=== PATIENT | female | born 1940 | race Caucasian/White ===

== ENCOUNTER → 2017-04-21 | Outpatient (CLI) | payer MEDICARE, BC ==
--- NOTE | 2017-04-21 11:39 | RAD ---
DATE: 04/21/2017 EXAM: MAMMO MARINE SCREENING BILATERAL HISTORY: Screening. The positive family history for breast malignancy is noted COMPARISON: 01/09/2016 This study was interpreted with the benefit of Computerized Aided Detection (CAD). FINDINGS: Breast Density: SCATTERED The breast parenchyma shows scattered fibroglandular densities. Breast parenchyma level B. No mass or suspect calcifications are seen in either breast. Lymph nodes are noted in the left axilla. There has not been a significant change in the appearance of the breasts compared to the previous exam IMPRESSION: Benign finding BI-RADS CATEGORY: 2 BENIGN FINDING(S) RECOMMENDED FOLLOW-UP: 12M 12 MONTH FOLLOW-UP PQRS compliance statement: Patient information was entered into a reminder system with a target due date 04/21/2018 for the next mammogram. Mammography is a sensitive method for finding small breast cancers, but it does not detect them all and is not a substitute for careful clinical examination. A negative mammogram does not negate a clinically suspicious finding and should not result in delay in biopsying a clinically suspicious abnormality. "Our facility is accredited by the [employer] Mammography [employer]."
== END | disposition home or self-care (01) ==
LOC: MAMMO 11:02
PROVIDERS: ATTEND Physician Assistant
DX: Z12.31 Encounter for screening mammogram for malignant neoplasm of breast (principal); Z80.3 Family history of malignant neoplasm of breast
CPT/HCPCS: 77063; G0202; 77067

== ENCOUNTER → 2017-12-22 | Outpatient (CLI) | payer MEDICARE, BC ==
[2017-12-22 12:08] LABS: HEMATOCRIT 39.6 % (36.0-47.0); HEMOGLOBIN 13.3 g/dL (12.0-15.5)
[2017-12-22 12:16] LABS: MAGNESIUM 1.9 mg/dL (1.8-2.4); URIC ACID 8.2 mg/dL (2.6-6.0)
[2017-12-22 12:28] LABS: ALBUMIN 3.9 g/dL (3.4-5.0); CALCIUM 9.5 mg/dL (8.5-10.1); CREATININE 1.1 mg/dL (0.6-1.0); PHOSPHORUS 3.4 mg/dL (2.6-4.7); POTASSIUM 3.5 mmol/L (3.5-5.1)
[2017-12-22 12:36] LABS: BILIRUBIN,URINE NEG (NEG); CLARITY,URINE CLEAR; COLOR,URINE YELLOW; GLUCOSE,URINE NEG (NEG); NITRITE,URINE NEG (NEG); RBC,URINE RARE /HPF (0-2); UROBILINOGEN,URINE 0.2 mg/dL (0.2 mg/dL); WBC,URINE RARE /HPF (0-4)
[2017-12-22 12:37] LABS: BACTERIA,URINE FEW /HPF (0-FEW); SQUAMOUS EPITHELIAL CELL,UR OCC /LPF
[2017-12-23 00:12] LABS: MICRO CREAT RATIO <11.3 mg/g creat (0.0-30.0); MICROALB RD UR <12.0 ug/mL (Not Estab.); PROTEIN RANDOM URINE 5.9 mg/dL (Not Estab.)
[2017-12-23 15:22] LABS: CALCIUM PTH 9.6 mg/dL (8.7-10.3); PTH INTACT 39 pg/mL (15-65)
== END | disposition home or self-care (01) ==
LOC: LAB 10:52
PROVIDERS: ATTEND Internal Medicine Nephrology
DX: I12.9 Hypertensive chronic kidney disease with stage 1 through stage 4 chronic kidney disease, or unspecified chronic kidney disease (principal); N18.3 Chronic kidney disease, stage 3 (moderate); E79.0 Hyperuricemia without signs of inflammatory arthritis and tophaceous disease; Z90.5 Acquired absence of kidney; Z68.29 Body mass index [BMI] 29.0-29.9, adult
CPT/HCPCS: 36415; 80069; 81001; 82043; 82570; 83735; 83970; 84156; 84550; 85014; 85018

== ENCOUNTER → 2017-12-31 | Outpatient (CLI) | payer MEDICARE, BC ==
[2017-12-31 11:37] LABS: BACTERIA,URINE 0 /HPF (0-FEW); BILIRUBIN,URINE NEG (NEG); CLARITY,URINE CLEAR; COLOR,URINE YELLOW; GLUCOSE,URINE NEG (NEG); NITRITE,URINE NEG (NEG); RBC,URINE 0 /HPF (0-2); SQUAMOUS EPITHELIAL CELL,UR OCC /LPF; UROBILINOGEN,URINE 0.2 mg/dL (0.2 mg/dL); WBC,URINE RARE /HPF (0-4)
[2017-12-31 11:49] LABS: ALBUMIN 3.7 g/dL (3.4-5.0); ALBUMIN/GLOBULIN RATIO 1.1 (1.0-1.7); CALCIUM 9.3 mg/dL (8.5-10.1); GFR 53.6; POTASSIUM 3.7 mmol/L (3.5-5.1); TOTAL BILIRUBIN 0.4 mg/dL (0.2-1.0); TOTAL PROTEIN 7.2 g/dL (6.4-8.2)
[2017-12-31 12:00] LABS: DIRECT BILIRUBIN 0.1 mg/dL (0.0-0.2)
== END | disposition home or self-care (01) ==
LOC: LAB 10:11
PROVIDERS: ATTEND Internal Medicine Cardiovascular Disease
DX: E78.5 Hyperlipidemia, unspecified (principal); Z79.899 Other long term (current) drug therapy
CPT/HCPCS: 36415; 80053; 80061; 81001; 82248; 87086; 87186

== ENCOUNTER → 2018-06-18 | Outpatient (CLI) | payer MEDICARE, BC ==
--- NOTE | 2018-06-22 15:45 | RAD ---
DATE: June 18, 2018 EXAM: MAMMO MARINE SCREENING BILATERAL HISTORY: Screening study. COMPARISON: 2015 and 2017 This study was interpreted with the benefit of Computerized Aided Detection (CAD). 2-D digital mammographic views of both breasts were performed in the CC and MLO projections. 3-D digital tomosynthesis images of both breasts were performed in the CC and MLO projections and reviewed on a computer workstation. FINDINGS: Breast Density: FATTY The breast parenchyma is primarily fatty replaced. Breast parenchyma level density A.. There are no dominant suspicious masses, suspicious microcalcifications or evidence of architectural distortion. IMPRESSION: No mammographic indicators for malignancy. BI-RADS CATEGORY: 1 NEGATIVE RECOMMENDED FOLLOW-UP: 12M 12 MONTH FOLLOW-UP PQRS compliance statement: Patient information was entered into a reminder system with a target due date June 19, 2019 for the next mammogram. Mammography is a sensitive method for finding small breast cancers, but it does not detect them all and is not a substitute for careful clinical examination. A negative mammogram does not negate a clinically suspicious finding and should not result in delay in biopsying a clinically suspicious abnormality. "Our facility is accredited by the [employer] Mammography [employer]." The patient's breast density may affect the ability of mammography to detect breast cancer. There are 4 categories of breast density, A, B, C and D. Breast density A means that most of the breast tissue is replaced with adipose tissue and therefore is not dense. Breast density B means that the breast tissue is mildly dense and scattered. Breast density C means that the breast tissue is heterogeneously dense. Breast density D means that the breast tissue is very dense. Breast densities especially C and D may decrease the sensitivity of mammography to detect breast cancer. Therefore, the patient may benefit from 3-D breast mammography (3D breast tomography) as a part of their screening mammogram. Insurance may or may not pay for this additional imaging. The patient's breast density based on today's mammogram is category A.
== END | disposition home or self-care (01) ==
LOC: MAMMO 09:57
PROVIDERS: ATTEND Physician Assistant
DX: Z12.31 Encounter for screening mammogram for malignant neoplasm of breast (principal); I12.9 Hypertensive chronic kidney disease with stage 1 through stage 4 chronic kidney disease, or unspecified chronic kidney disease; N18.3 Chronic kidney disease, stage 3 (moderate); E78.5 Hyperlipidemia, unspecified; M17.11 Unilateral primary osteoarthritis, right knee; Z80.3 Family history of malignant neoplasm of breast
CPT/HCPCS: 77063; 77067

== ENCOUNTER → 2018-07-21 | Outpatient (CLI) | payer MEDICARE, BC | END | disposition home or self-care (01) | LOC: LAB 10:30 | PROVIDERS: ATTEND Internal Medicine Cardiovascular Disease | DX: E78.49 Other hyperlipidemia (principal) | CPT/HCPCS: 80061 ==

== ENCOUNTER 2018-12-28 04:00 | Emergency (ER) | payer MEDICARE, BC ==
[~2018-12-28] VITALS: Ht 154.9 cm; Wt 63.5 kg
[2018-12-28] MEDS ORDERED: IV NORMAL SALINE 1,000ML 1,000 ML IV ONE (04:30)
[2018-12-28 04:31] LABS: BASO % 0 % (0-3); EOS % 0 % (0-3); HEMATOCRIT 39.3 % (36.0-47.0); HEMOGLOBIN 13.3 g/dL (12.0-15.5); LYMPH # 1.2 x10^3/uL (1.0-4.8); LYMPH % 13 % (24-48); MEAN CORPUSCULAR HEMOGLOBIN 29 pg (25-35); MEAN CORPUSCULAR HGB CONC 34 g/dL (31-37); MEAN CORPUSCULAR VOLUME 85 fL (79-100); MONO # 0.4 x10^3/uL (0.0-1.1); MONO % 4 % (0-9); NEUT # 7.4 x10^3uL (1.8-7.7); NEUT % 82 % (31-73); PLATELET COUNT 304 x10^3/uL (140-400); RED BLOOD COUNT 4.61 x10^6/uL (3.50-5.40); RED CELL DISTRIBUTION WIDTH 14.1 % (11.5-14.5); WHITE BLOOD COUNT 8.9 x10^3/uL (4.0-11.0)
--- NOTE | 2018-12-28 04:35 | PHYS DOC ---
Past History Past Medical History: High Cholesterol, Hypertension, Hypothyroid, Kidney Stones Past Surgical History: Other Additional Past Surgical Histo: Left nephrectomy Smoking: Cigarettes Alcohol Use: None Drug Use: None Adult General Chief Complaint Chief Complaint: ABDOMINAL PAIN HPI HPI 78-year-old female presents with report of right lower quadrant abdominal pain with radiation to back which started at 1900 last night. Patient does report some associated sensation that she is "bloated"and possibly constipated. Patient does report previous normal bowel movement yesterday morning. Denies fever or chills. Also denies any nausea or vomiting. Denies known trauma. Patient does have history of prior kidney stones requiring nephrectomy to left side when she was 21 years old. Denies hematuria. Patient does report some decreased urination. Review of Systems Review of Systems Constitutional: Denies fever or chills [] Eyes: Denies change in visual acuity, redness, or eye pain [] HENT: Denies nasal congestion or sore throat [] Respiratory: Denies cough or shortness of breath [] Cardiovascular: Denies chest pain or palpitations GI: Reports abdominal pain and constipation; denies nausea, vomiting, bloody stools or diarrhea [] : Denies dysuria or hematuria; reports decreased urination Musculoskeletal: Reports back pain; denies joint pain Integument: Denies rash or skin lesions [] Neurologic: Denies headache, focal weakness or sensory changes [] Complete systems were reviewed and found to be within normal limits, except as documented in this note. Current Medications Current Medications Current Medications Medications (Trade) Dose Ordered Sig/Yaw Start Time Stop Time Status Last Admin Dose Admin Fentanyl Citrate (Fentanyl 2ml Vial) 25 mcg 1X ONCE 12/28/18 04:30 12/28/18 04:31 UNV Sodium Chloride 1,000 ml @ 1,000 mls/hr 1X ONCE 12/28/18 04:30 12/28/18 05:29 UNV 12/28/18 04:24 1,000 MLS/HR Allergies Allergies Allergies Coded Allergies Type Severity Reaction Last Updated Verified amlodipine Allergy Intermediate Swelling 12/28/18 Yes Physical Exam Physical Exam Constitutional: Well developed, well nourished, no acute distress, non-toxic appearance. [] HENT: Normocephalic, atraumatic, mucus membranes moist Eyes: Conjunctiva normal, no discharge. [] Neck: Normal range of motion, no tenderness, supple Cardiovascular: Heart rate regular rhythm, no murmur [] Lungs & Thorax: Bilateral breath sounds clear to auscultation [] Abdomen: Soft mild RLQ tenderness Skin: Warm, dry, no erythema, no rash. [] Back: No tenderness, no CVA tenderness. [] Extremities: No tenderness, ROM intact, no edema. [] Neurologic: Alert and oriented X 3, no focal deficits noted. [] Psychologic: Affect normal, judgement normal, mood normal. [] Current Patient Data Vital Signs Vital Signs Date Time Temp Pulse Resp B/P (MAP) Pulse Ox O2 Delivery O2 Flow Rate FiO2 12/28/18 04:06 97.9 81 20 95 Room Air EKG EKG [] Radiology/Procedures Radiology/Procedures PROCEDURE: CT ABDOMEN PELVIS WO CONTRAST CT scan of the abdomen and pelvis without contrast 11/30/2018 CLINICAL HISTORY: Right flank pain. TECHNIQUE: Unenhanced, contiguous, 3 mm axial sections were obtained through the abdomen and pelvis. One or more of the following individualized dose reduction techniques were utilized for this study: 1. Automated exposure control. 2. Adjustment of the mA and/or kV according to patient size. 3. Use of iterative reconstruction technique. FINDINGS: Images through the lung bases demonstrate minimal dependent subsegmental atelectasis bilaterally. The liver, spleen, pancreas, and adrenal glands are within normal limits. The patient is post left nephrectomy. The right kidney is enlarged. Moderate dilatation of the right intrarenal collecting system is seen. The right ureter is moderately dilated throughout its course. Increased density is seen within the fat surrounding the right kidney. Within the distal right ureter projecting medially into the urinary bladder at the level of the right UVJ a 6.5 mm distal ureteral calculus is seen. This causing moderate obstruction of the right collecting system. Atherosclerotic calcification of the abdominal aorta is seen. The abdominal aorta tapers normally. The gallbladder is contracted. No free fluid or free air is seen within the abdomen. There is no evidence of bowel obstruction. The appendix is well-visualized and is within normal limits. Images through the pelvis demonstrate the urinary bladder to be contracted. Calcifications are seen within the pelvis consistent with phleboliths. Multiple diverticula are seen involving the sigmoid colon. No inflammatory changes are seen in the adjacent fat. No free fluid is seen. Very mild S-shaped curvature of the thoracolumbar spine is seen. Degenerative changes are seen involving the lower thoracic and throughout the lumbar spine and both hips. IMPRESSION: 6.5 mm distal right ureteral calculus is seen projecting medially into the urinary bladder at the level of the right UVJ which is causing moderate obstruction of the right collecting system. Electronically signed by: Harlan Marino MD (12/28/2018 5:10 AM) [facility] Course & Med Decision Making Course & Med Decision Making Pertinent Labs and Imaging studies reviewed. (See chart for details) Elderly patient presents with report of right lower quadrant abdominal pain which started last night at 1900. No history of known trauma. Reports some issues with constipation and decreased urination. Synthroid treatment provided. IV fluid hydration given. Labs obtained and posted to chart. UA with microscopic hematuria. Creatinine increased from prior [employer] data (1.0 in December 2017 to 2.3 today). CT abd/pelvis with 6.5mm obstructing stone at UVJ with moderate hydronephrosis. Patient requiring transfer for urology consultation and admission for further evaluation and treatment. Discussed case with Dr. Cunningham (hospitalist) who is in agreement with transfer to [facility]. Discussed findings and plan with patient and family, who acknowledge understanding and agreement. Dragon Disclaimer Dragon Disclaimer This electronic medical record was generated, in whole or in part, using a voice recognition dictation system. Departure Departure: Impression: Primary Impression: Hydronephrosis with urinary obstruction due to ureteral calculus Additional Impression: Acute kidney failure Disposition: 05 TRANSFER OTHER ([facility]) Admitting Physician: Pipo Cunningham Condition: GUARDED Referrals: MARKUS HERNANDES (PCP) Problem Qualifiers Additional Impression: Acute kidney failure Acute renal failure type: unspecified Qualified Codes: N17.9 - Acute kidney failure, unspecified MAKENNA KELLY DO Dec 28, 2018 04:35
[2018-12-28 04:52] LABS: ALBUMIN 3.8 g/dL (3.4-5.0); ALBUMIN/GLOBULIN RATIO 1.1 (1.0-1.7); CALCIUM 9.3 mg/dL (8.5-10.1); CREATININE 2.3 mg/dL (0.6-1.0); GFR 20.5; POTASSIUM 3.9 mmol/L (3.5-5.1); TOTAL BILIRUBIN 0.4 mg/dL (0.2-1.0); TOTAL PROTEIN 7.4 g/dL (6.4-8.2)
--- NOTE | 2018-12-28 05:13 | RAD ---
CT scan of the abdomen and pelvis without contrast 11/30/2018 CLINICAL HISTORY: Right flank pain. TECHNIQUE: Unenhanced, contiguous, 3 mm axial sections were obtained through the abdomen and pelvis. One or more of the following individualized dose reduction techniques were utilized for this study: 1. Automated exposure control. 2. Adjustment of the mA and/or kV according to patient size. 3. Use of iterative reconstruction technique. FINDINGS: Images through the lung bases demonstrate minimal dependent subsegmental atelectasis bilaterally. The liver, spleen, pancreas, and adrenal glands are within normal limits. The patient is post left nephrectomy. The right kidney is enlarged. Moderate dilatation of the right intrarenal collecting system is seen. The right ureter is moderately dilated throughout its course. Increased density is seen within the fat surrounding the right kidney. Within the distal right ureter projecting medially into the urinary bladder at the level of the right UVJ a 6.5 mm distal ureteral calculus is seen. This causing moderate obstruction of the right collecting system. Atherosclerotic calcification of the abdominal aorta is seen. The abdominal aorta tapers normally. The gallbladder is contracted. No free fluid or free air is seen within the abdomen. There is no evidence of bowel obstruction. The appendix is well-visualized and is within normal limits. Images through the pelvis demonstrate the urinary bladder to be contracted. Calcifications are seen within the pelvis consistent with phleboliths. Multiple diverticula are seen involving the sigmoid colon. No inflammatory changes are seen in the adjacent fat. No free fluid is seen. Very mild S-shaped curvature of the thoracolumbar spine is seen. Degenerative changes are seen involving the lower thoracic and throughout the lumbar spine and both hips. IMPRESSION: 6.5 mm distal right ureteral calculus is seen projecting medially into the urinary bladder at the level of the right UVJ which is causing moderate obstruction of the right collecting system. Electronically signed by: Harlan Marino MD (12/28/2018 5:10 AM) [facility]
[2018-12-28 05:14] LABS: BACTERIA,URINE FEW /HPF (0-FEW); BILIRUBIN,URINE NEG (NEG); CLARITY,URINE HAZY; COLOR,URINE YELLOW; GLUCOSE,URINE NEG (NEG); NITRITE,URINE NEG (NEG); RBC,URINE >40 /HPF (0-2); SQUAMOUS EPITHELIAL CELL,UR FEW /LPF; UROBILINOGEN,URINE 0.2 mg/dL (0.2 mg/dL)
[2018-12-28 07:17] VITALS: BP 97/63
== END 2018-12-28 07:17 | disposition short-term general hospital (02) ==
LOC: ER 04:00
DX: N13.2 Hydronephrosis with renal and ureteral calculous obstruction (principal); N17.9 Acute kidney failure, unspecified; E78.00 Pure hypercholesterolemia, unspecified; I10 Essential (primary) hypertension; E03.9 Hypothyroidism, unspecified; Z87.442 Personal history of urinary calculi; F17.210 Nicotine dependence, cigarettes, uncomplicated; Z88.8 Allergy status to other drugs, medicaments and biological substances
CPT/HCPCS: 36415; 74176; 80053; 81001; 83690; 83735; 85025; 85610; 85730; 96374; 96376; 99285; J3010; J7030

== ENCOUNTER → 2019-02-22 | Outpatient (CLI) | payer MEDICARE, BC ==
[2019-02-22 10:05] LABS: ALBUMIN 3.6 g/dL (3.4-5.0); CALCIUM 9.6 mg/dL (8.5-10.1); CREATININE 1.1 mg/dL (0.6-1.0); GFR 47.9; MAGNESIUM 1.6 mg/dL (1.8-2.4); PHOSPHORUS 3.3 mg/dL (2.6-4.7); POTASSIUM 3.5 mmol/L (3.5-5.1); URIC ACID 8.8 mg/dL (2.6-6.0)
[2019-02-22 10:06] LABS: BASO # 0.1 x10^3/uL (0.0-0.2); BASO % 1 % (0-3); EOS # 0.3 x10^3/uL (0.0-0.7); EOS % 6 % (0-3); HEMATOCRIT 36.1 % (36.0-47.0); HEMOGLOBIN 12.4 g/dL (12.0-15.5); LYMPH # 1.7 x10^3/uL (1.0-4.8); LYMPH % 27 % (24-48); MEAN CORPUSCULAR HEMOGLOBIN 29 pg (25-35); MEAN CORPUSCULAR HGB CONC 34 g/dL (31-37); MEAN CORPUSCULAR VOLUME 85 fL (79-100); MONO # 0.5 x10^3/uL (0.0-1.1); MONO % 7 % (0-9); NEUT # 3.6 x10^3uL (1.8-7.7); NEUT % 59 % (31-73); PLATELET COUNT 360 x10^3/uL (140-400); RED BLOOD COUNT 4.23 x10^6/uL (3.50-5.40); RED CELL DISTRIBUTION WIDTH 13.8 % (11.5-14.5); WHITE BLOOD COUNT 6.1 x10^3/uL (4.0-11.0)
[2019-02-22 10:37] LABS: BACTERIA,URINE 0 /HPF (0-FEW); BILIRUBIN,URINE NEG (NEG); CLARITY,URINE CLEAR; COLOR,URINE YELLOW; GLUCOSE,URINE NEG (NEG); NITRITE,URINE NEG (NEG); RBC,URINE 0 /HPF (0-2); SQUAMOUS EPITHELIAL CELL,UR OCC /LPF; UROBILINOGEN,URINE 0.2 mg/dL (0.2 mg/dL); WBC,URINE RARE /HPF (0-4)
[2019-02-22 14:12] LABS: CREATININE,RANDOM URINE 82.5 mg/dL (Not Establ.)
[2019-02-22 20:09] LABS: MICROALB RD UR 8.2 ug/mL (Not Estab.)
[2019-02-23 02:06] LABS: CALCIUM PTH 9.5 mg/dL (8.7-10.3); CREATININE PTH 1.06 mg/dL (0.57-1.00); PTH INTACT 44 pg/mL (15-65)
== END | disposition home or self-care (01) ==
LOC: LAB 08:32
PROVIDERS: ATTEND Nurse Practitioner Adult Health
DX: I12.9 Hypertensive chronic kidney disease with stage 1 through stage 4 chronic kidney disease, or unspecified chronic kidney disease (principal); N18.3 Chronic kidney disease, stage 3 (moderate); E79.0 Hyperuricemia without signs of inflammatory arthritis and tophaceous disease; Z90.5 Acquired absence of kidney; Z68.25 Body mass index [BMI] 25.0-25.9, adult
CPT/HCPCS: 36415; 80069; 81001; 82043; 82570; 83735; 83970; 84156; 84550; 85025

== ENCOUNTER → 2019-03-30 | Outpatient (CLI) | payer MEDICARE, BC ==
--- NOTE | 2019-03-30 16:16 | RAD ---
Examination: WRIST 2V RIGHT History: Wrist pain Comparison/Correlation: None Findings: Frontal and lateral views of the right wrist were obtained. Osteopenia noted. No significant joint space narrowing. No acute fracture or bony destruction. Soft tissues are unremarkable. Impression: No acute process. Electronically signed by: Zeus Ty MD (03/30/2019 4:13 PM) [id number]
== END | disposition home or self-care (01) ==
LOC: PMG 09:02
PROVIDERS: ATTEND Physician Assistant
DX: M85.88 Other specified disorders of bone density and structure, other site (principal)
CPT/HCPCS: 73100

== ENCOUNTER → 2019-07-07 | Outpatient (CLI) | payer MEDICARE, BC ==
--- NOTE | 2019-07-07 15:44 | RAD ---
EXAM: Right wrist, 2 views. HISTORY: Palpable lump. COMPARISON: None. FINDINGS: 2 views of the right wrist are obtained. There is mild widening of the scapholunate joint space suggesting ligamentous injury. There is no fracture, dislocation or subluxation. IMPRESSION: 1. Mild widening of the scapholunate joint space, suggesting ligamentous injury. 2. No acute osseous finding. Electronically signed by: Ina Egan MD (07/07/2019 3:41 PM) [place] [id number]
== END | disposition home or self-care (01) ==
LOC: PMG 11:14
PROVIDERS: ATTEND Physician Assistant
DX: M25.431 Effusion, right wrist (principal)
CPT/HCPCS: 73100

== ENCOUNTER → 2019-09-16 | Outpatient (CLI) | payer MEDICARE, BC ==
--- NOTE | 2019-09-17 14:23 | RAD ---
DATE: 09/16/2019 EXAM: MAMMO MAIRNE SCREENING BILATERAL HISTORY: Routine screening COMPARISON: 01/02/2015, 01/09/2016, 04/21/2017, 06/18/2018 mammographic exams. This study was interpreted with the benefit of Computerized Aided Detection (CAD). Breast Density: SCATTERED The breast parenchyma shows scattered fibroglandular densities. Breast parenchyma level B. FINDINGS: Small right breast mass is stable. No suspicious calcifications or distortion. Asymmetry at the left lower outer breast approximately 10 cm from the nipple is new in the interval and seen on the CC projection. IMPRESSION: Stable BI-RADS CATEGORY: 0 INCOMPLETE: NEEDS ADDITIONAL IMAGING EVALUATION AND/OR PRIOR MAMMOGRAMS FOR COMPARISON. RECOMMENDED FOLLOW-UP: ADD ADDITIONAL IMAGING. Spot compression of the left outer breast is recommended. Ultrasound may be needed. PQRS compliance statement: Patient information was entered into a reminder system with a target due date for the next mammogram. Mammography is a sensitive method for finding small breast cancers, but it does not detect them all and is not a substitute for careful clinical examination. A negative mammogram does not negate a clinically suspicious finding and should not result in delay in biopsying a clinically suspicious abnormality. "Our facility is accredited by the [employer] Mammography Program."
== END | disposition home or self-care (01) ==
LOC: MAMMO 08:50
PROVIDERS: ATTEND Physician Assistant
DX: Z12.31 Encounter for screening mammogram for malignant neoplasm of breast (principal); N63.10 Unspecified lump in the right breast, unspecified quadrant
CPT/HCPCS: 77063; 77067

== ENCOUNTER → 2019-09-30 | Outpatient (CLI) | payer MEDICARE, BC ==
--- NOTE | 2019-09-30 15:12 | RAD ---
DATE: 09/30/2019. EXAM: DIGITAL DIAGNOSTIC LT, BREAST LEFT. HISTORY: Indeterminate findings on mammographic screening. Additional imaging is requested. COMPARISON: 09/16/2019, 06/18/2018. FINDINGS: Breast Density: SCATTERED The breast parenchyma shows scattered fibroglandular densities. Breast parenchyma level B.. No clear abnormalities appreciated within the left outer breast on spot compression. Coarse calcifications appear benign. The parenchymal pattern appears stable. Sonography of the left lower outer breast was performed. This reveals only normal parenchyma. There is no suspicious sonographic finding. BI-RADS CATEGORY: 2 BENIGN FINDING(S). RECOMMENDED FOLLOW-UP: 12M 12 MONTH FOLLOW-UP. PQRS compliance statement: Patient information was entered into a reminder system with a target due date 09/16/2020 for the next mammogram. Mammography is a sensitive method for finding small breast cancers, but it does not detect them all and is not a substitute for careful clinical examination. A negative mammogram does not negate a clinically suspicious finding and should not result in delay in biopsying a clinically suspicious abnormality. "Our facility is accredited by the [employer] Mammography Program."
== END | disposition home or self-care (01) ==
LOC: MAMMO 13:44
PROVIDERS: ATTEND Physician Assistant
DX: R92.1 Mammographic calcification found on diagnostic imaging of breast (principal)
CPT/HCPCS: 76641; 77065

== ENCOUNTER → 2019-11-01 | Outpatient (CLI) | payer MEDICARE, BC ==
--- NOTE | 2019-11-01 16:10 | RAD ---
EXAM: Left knee, 3 views. HISTORY: Pain. COMPARISON: None. FINDINGS: 3 views of the left knee are obtained. There is mild medial compartment joint space narrowing and tricompartmental spurring. There is a trace joint effusion. There is enthesopathy along the superior patella. There may be a small joint loose body projecting over the anterior tibial plateau. IMPRESSION: Mild medial compartment predominant osteoarthritis of the left knee with a trace effusion. Electronically signed by: Ina Egan MD (11/01/2019 4:07 PM) [facility] [place]
== END | disposition home or self-care (01) ==
LOC: DXRAD 14:52
PROVIDERS: ATTEND Family Medicine
DX: M16.12 Unilateral primary osteoarthritis, left hip (principal); M76.892 Other specified enthesopathies of left lower limb, excluding foot; M25.862 Other specified joint disorders, left knee
CPT/HCPCS: 73560

== ENCOUNTER → 2020-02-22 | Outpatient (CLI) | payer MEDICARE, BC ==
[2020-02-22 11:29] LABS: BASO # 0.1 x10^3/uL (0.0-0.2); BASO % 1 % (0-3); EOS # 0.1 x10^3/uL (0.0-0.7); EOS % 2 % (0-3); HEMATOCRIT 38.3 % (36.0-47.0); HEMOGLOBIN 12.8 g/dL (12.0-15.5); LYMPH # 1.6 x10^3/uL (1.0-4.8); LYMPH % 22 % (24-48); MEAN CORPUSCULAR HEMOGLOBIN 30 pg (25-35); MEAN CORPUSCULAR HGB CONC 34 g/dL (31-37); MEAN CORPUSCULAR VOLUME 89 fL (79-100); MONO # 0.4 x10^3/uL (0.0-1.1); MONO % 6 % (0-9); NEUT # 5.1 x10^3uL (1.8-7.7); NEUT % 70 % (31-73); PLATELET COUNT 314 x10^3/uL (140-400); RED CELL DISTRIBUTION WIDTH 15.1 % (11.5-14.5); WHITE BLOOD COUNT 7.3 x10^3/uL (4.0-11.0)
[2020-02-22 11:38] LABS: ALBUMIN 3.7 g/dL (3.4-5.0); CREATININE 1.2 mg/dL (0.6-1.0); GFR 43.2; MAGNESIUM 1.9 mg/dL (1.8-2.4); PHOSPHORUS 2.7 mg/dL (2.6-4.7); POTASSIUM 3.6 mmol/L (3.5-5.1); URIC ACID 8.4 mg/dL (2.6-6.0)
[2020-02-22 13:47] LABS: BILIRUBIN,URINE NEG (NEG); CLARITY,URINE HAZY; COLOR,URINE YELLOW; GLUCOSE,URINE NEG (NEG)
[2020-02-22 13:48] LABS: BACTERIA,URINE 0 /HPF (0-FEW); NITRITE,URINE NEG (NEG); SQUAMOUS EPITHELIAL CELL,UR MOD /LPF; UROBILINOGEN,URINE 0.2 mg/dL (0.2 mg/dL)
[2020-02-22 20:26] LABS: CREATININE,RANDOM URINE 61.5 mg/dL (Not Establ.)
[2020-02-22 23:07] LABS: CALCIUM PTH 9.4 mg/dL (8.7-10.3); PTH INTACT 56 pg/mL (15-65)
[2020-02-23 05:43] LABS: MICROALB RD UR 162.3 ug/mL (Not Estab.)
== END | disposition home or self-care (01) ==
LOC: LAB 10:20
PROVIDERS: ATTEND Nurse Practitioner Adult Health
DX: I12.9 Hypertensive chronic kidney disease with stage 1 through stage 4 chronic kidney disease, or unspecified chronic kidney disease (principal); N18.3 Chronic kidney disease, stage 3 (moderate); E79.0 Hyperuricemia without signs of inflammatory arthritis and tophaceous disease; Z68.26 Body mass index [BMI] 26.0-26.9, adult; Z90.5 Acquired absence of kidney; Z79.899 Other long term (current) drug therapy
CPT/HCPCS: 36415; 80069; 81001; 82043; 82570; 83735; 83970; 84156; 84550; 85025; 87086

== ENCOUNTER → 2020-03-07 | Outpatient (CLI) | payer MEDICARE, BC ==
[2020-03-07 10:31] LABS: ALBUMIN 3.6 g/dL (3.4-5.0); CALCIUM 8.9 mg/dL (8.5-10.1); CREATININE 1.2 mg/dL (0.6-1.0); GFR 43.2; POTASSIUM 3.5 mmol/L (3.5-5.1); TOTAL BILIRUBIN 0.3 mg/dL (0.2-1.0); TOTAL PROTEIN 7.1 g/dL (6.4-8.2)
== END | disposition home or self-care (01) ==
LOC: LAB 09:17
PROVIDERS: ATTEND Internal Medicine Cardiovascular Disease
DX: E78.5 Hyperlipidemia, unspecified (principal)
CPT/HCPCS: 36415; 80053; 80061

== ENCOUNTER → 2020-03-29 | Outpatient (CLI) | payer MEDICARE, BC ==
--- NOTE | 2020-03-29 16:25 | RAD ---
EXAM: Thyroid Ultrasound INDICATION: Dysphagia. Patient reports having had a previous remote neck biopsy unrelated to her thyroid. She reports she is on thyroid medication currently but is unsure what medication or what dose. Technologist denies any palpable findings noted in the [id number] during the scan. ? TECHNIQUE: Real-time ultrasound of the thyroid was performed with permanent freeze-frame documentation. COMPARISON: No prior examinations are available for comparison. ? FINDINGS: THYROID: Thyroid gland is small in size but homogenous in echogenicity. ? Right Lobe: 2.7 x 1.0 x 0.9 cm. ? Left Lobe: 2.3 x 1.0 x 0.8 cm. ? Isthmus: 0.2 cm. At the inferior aspect of the right thyroid lobe is noted an 8 x 6 mm nodule that is centrally echogenic and has a hypoechoic outer margin. This is best illustrated on images 15 through 18. ?? Transverse image 19 shows a 4 mm solid (2) hypoechoic (2) nodule in the left aspect of the isthmus with ill defined margins (0) and internal echogenicity that could represent microcalcifications (3). This may have a correlate on the sagittal image 25 adjacent to the tracheal cartilage. ? OTHER: No evidence of adjacent cervical adenopathy. ? IMPRESSION: 1. Small thyroid gland, likely reflecting posttreatment effects. 2. An 8 mm nodule at the inferior inferior right thyroid lobe could represent a parathyroid nodule versus a lower cervical lymph node with prominent fatty hilum. It is doubtful that this actually represents a thyroid nodule. This can be reassessed on follow-up ultrasound or correlated with any CT examinations if available. 3. A 4 mm hypoechoic nodule with probable punctate internal calcifications currently is suspicious (TI-RADS 5) with point score 7. Recommendations for follow-up are annual follow-up until 5 years have elapsed if the lesion is at least 5 mm but less than 1 cm in size. FNA should be considered if it is a centimeter or greater in size. To my knowledge, no specific guidelines exist for nodules less than 5 mm in size. It may be reasonable to consider follow-up in one year. Electronically signed by: Josh Mace MD (03/29/2020 4:23 PM) [id number]
== END | disposition home or self-care (01) ==
LOC: US 10:17
PROVIDERS: ATTEND Physician Assistant
DX: E04.1 Nontoxic single thyroid nodule (principal)
CPT/HCPCS: 76536

== ENCOUNTER → 2020-10-04 | Outpatient (CLI) | payer MEDICARE, BC ==
--- NOTE | 2020-10-04 09:42 | RAD ---
DATE: 10/04/2020 8:38 AM EXAM: MAMMO MARINE SCREENING BILATERAL HISTORY: Screening COMPARISON: 09/16/2019 Bilateral CC and MLO views of the breasts were performed. Bilateral breast tomosynthesis was performed in CC and MLO projections. This study was interpreted with the benefit of Computerized Aided Detection (CAD). FINDINGS: Breast Density: SCATTERED The breast parenchyma shows scattered fibroglandular densities. Breast parenchyma level B No suspicious masses, microcalcifications or architectural distortion is present to suggest malignancy in either breast. The visualized axillae are unremarkable. IMPRESSION: No mammographic evidence of malignancy. BI-RADS CATEGORY: 1 NEGATIVE RECOMMENDED FOLLOW-UP: 12M 12 MONTH FOLLOW-UP Annual screening mammography is recommended, unless clinically indicated sooner based on symptoms or change in physical exam. PQRS compliance statement: Patient information was entered into a reminder system with a target due date for the next mammogram. Mammography is a sensitive method for finding small breast cancers, but it does not detect them all and is not a substitute for careful clinical examination. A negative mammogram does not negate a clinically suspicious finding and should not result in delay in biopsying a clinically suspicious abnormality. "Our facility is accredited by the [employer] Mammography Program."
== END ==
LOC: MAMMO 08:24
PROVIDERS: ATTEND Physician Assistant
DX: Z12.31 Encounter for screening mammogram for malignant neoplasm of breast (principal)
CPT/HCPCS: 77063; 77067

== ENCOUNTER → 2020-10-23 | Outpatient (CLI) | payer MEDICARE, BC | LOC: LAB 09:20 | PROVIDERS: ATTEND Internal Medicine Cardiovascular Disease | DX: E78.5 Hyperlipidemia, unspecified (principal) | CPT/HCPCS: 80061 ==

== ENCOUNTER → 2021-01-01 | Outpatient (CLI) | payer MEDICARE, BC ==
--- NOTE | 2021-01-02 07:24 | RAD ---
XR KNEE_AP BILAT STANDING, XR KNEE_LT 1-2 VIEWS 01/01/2021 2:04 PM INDICATION: Left knee pain COMPARISON: Left knee radiograph 11/01/2019 TECHNIQUE: 3 views of the left knee including a standing comparison view of the right knee provided. FINDINGS/ IMPRESSION: 1. Left total knee arthroplasty changes are identified. There is no lucency surrounding the hardware. No evidence for hardware failure. Alignment is within normal limits. There may be a small knee joint effusion. No acute fracture or dislocation. Patellar enthesopathy is present. No significant soft ti ssue abnormality. 2. Right total knee arthroplasty changes are present without surrounding lucency. Electronically signed by: Katie Hoffman MD (01/02/2021 7:21 AM) [id number]
== END ==
LOC: DXRAD 13:57
PROVIDERS: ATTEND Physician Assistant
DX: M77.8 Other enthesopathies, not elsewhere classified (principal); Z96.651 Presence of right artificial knee joint; Z96.652 Presence of left artificial knee joint
CPT/HCPCS: 73560; 73565

== ENCOUNTER → 2021-01-16 | Outpatient (CLI) | payer MEDICARE, BC ==
--- NOTE | 2021-01-16 12:14 | RAD ---
INDICATION: Reason: NODULE ON RT UPPER EXTREM / Spl. Instructions: / History: COMPARISON: None. FINDINGS: Focused ultrasound images are obtained of the soft tissues of the right upper arm at the region of co ncern. Heterogenous tissue is identified within the musculature with alteration of the fat planes and muscul ature. This has an ill-defined appearance but extends for at least 45 mm. No drainable fluid collecti on. IMPRESSION: * Heterogenous tissue is identified at the right upper arm at the region of concern predominantly w ithin the musculature. Could be from causes such as muscular tearing with associated fluid in the sof t tissue but would consider obtaining a follow-up to ensure that this appropriately decreases to excl ude less common soft tissue neoplastic causes. Electronically signed by: Abdullahi Odonnell MD (01/16/2021 12:11 PM) [id number]
== END ==
LOC: US 09:37
DX: R22.31 Localized swelling, mass and lump, right upper limb (principal)
CPT/HCPCS: 76881

== ENCOUNTER → 2021-04-19 | Outpatient (CLI) | payer MEDICARE, BC ==
[2021-04-19 11:30] LABS: HEMATOCRIT 36.7 % (36.0-47.0); HEMOGLOBIN 12.4 g/dL (12.0-15.5)
[2021-04-19 11:37] LABS: ALBUMIN 3.9 g/dL (3.4-5.0); CALCIUM 9.3 mg/dL (8.5-10.1); CREATININE 1.1 mg/dL (0.6-1.0); GFR 47.7; PHOSPHORUS 3.3 mg/dL (2.6-4.7); POTASSIUM 3.6 mmol/L (3.5-5.1)
[2021-04-20 01:10] LABS: CALCIUM PTH 9.4 mg/dL (8.7-10.3); CREATININE PTH 1.02 mg/dL (0.57-1.00); PTH INTACT 39 pg/mL (15-65)
== END ==
LOC: LAB 10:35
PROVIDERS: ATTEND Internal Medicine Nephrology
DX: I12.9 Hypertensive chronic kidney disease with stage 1 through stage 4 chronic kidney disease, or unspecified chronic kidney disease (principal); N18.32 Chronic kidney disease, stage 3b; E79.0 Hyperuricemia without signs of inflammatory arthritis and tophaceous disease; Z90.5 Acquired absence of kidney
CPT/HCPCS: 36415; 80069; 82306; 83970; 85014; 85018

== ENCOUNTER → 2021-06-18 | Outpatient (CLI) | payer MEDICARE, BC ==
[2021-06-18 10:36] LABS: BASO # 0.1 x10^3/uL (0.0-0.2); BASO % 1 % (0-3); EOS # 0.2 x10^3/uL (0.0-0.7); EOS % 4 % (0-3); HEMATOCRIT 36.3 % (36.0-47.0); HEMOGLOBIN 12.1 g/dL (12.0-15.5); LYMPH # 1.5 x10^3/uL (1.0-4.8); LYMPH % 30 % (24-48); MEAN CORPUSCULAR HEMOGLOBIN 29 pg (25-35); MEAN CORPUSCULAR HGB CONC 33 g/dL (31-37); MEAN CORPUSCULAR VOLUME 88 fL (79-100); MONO # 0.4 x10^3/uL (0.0-1.1); MONO % 7 % (0-9); NEUT % 58 % (31-73); PLATELET COUNT 312 x10^3/uL (140-400); RED BLOOD COUNT 4.14 x10^6/uL (3.50-5.40); RED CELL DISTRIBUTION WIDTH 15.1 % (11.5-14.5); WHITE BLOOD COUNT 5.2 x10^3/uL (4.0-11.0)
[2021-06-18 10:42] LABS: ALBUMIN 3.8 g/dL (3.4-5.0); C REACTIVE PROTEIN 3.2 mg/L (0-3.3); CALCIUM 9.3 mg/dL (8.5-10.1); CREATININE 1.5 mg/dL (0.6-1.0); GFR 33.2; MAGNESIUM 2.3 mg/dL (1.8-2.4); POTASSIUM 3.5 mmol/L (3.5-5.1); TOTAL BILIRUBIN 0.3 mg/dL (0.2-1.0); TOTAL PROTEIN 7.6 g/dL (6.4-8.2); URIC ACID 8.6 mg/dL (2.6-6.0)
[2021-06-18 14:53] LABS: THYROID STIM HORMONE (TSH) 1.29 uIU/mL (0.358-3.740)
== END ==
LOC: LAB 08:49
PROVIDERS: ATTEND Internal Medicine
DX: Z13.29 Encounter for screening for other suspected endocrine disorder (principal); E78.00 Pure hypercholesterolemia, unspecified; E55.9 Vitamin D deficiency, unspecified
CPT/HCPCS: 36415; 80053; 80061; 82550; 83695; 83735; 84443; 84550; 85025; 85384; 86140

== ENCOUNTER → 2021-07-20 | Outpatient (CLI) | payer MEDICARE, BC ==
[2021-07-20 11:04] LABS: ALBUMIN 3.7 g/dL (3.4-5.0); ALBUMIN/GLOBULIN RATIO 0.9 (1.0-1.7); CALCIUM 9.4 mg/dL (8.5-10.1); CREATININE 1.2 mg/dL (0.6-1.0); POTASSIUM 3.7 mmol/L (3.5-5.1); TOTAL BILIRUBIN 0.3 mg/dL (0.2-1.0); TOTAL PROTEIN 7.6 g/dL (6.4-8.2)
== END ==
LOC: LAB 09:51
PROVIDERS: ATTEND Internal Medicine
DX: E78.00 Pure hypercholesterolemia, unspecified (principal)
CPT/HCPCS: 36415; 80053; 80061; 82550

== ENCOUNTER → 2021-10-03 | Outpatient (CLI) | payer MEDICARE, BC | LOC: LAB 15:00 | PROVIDERS: ATTEND Internal Medicine Cardiovascular Disease | DX: E78.5 Hyperlipidemia, unspecified (principal) | CPT/HCPCS: 80061 ==

== ENCOUNTER → 2021-10-16 | Outpatient (CLI) | payer MEDICARE, BC ==
--- NOTE | 2021-10-16 14:12 | CARD ---
MR#: [id number] Date of Study: 10/16/2021 Ordering Physician: MEGHAN KAUR, Referring Physician: MEGHAN KAUR, Tech: Elis Arizmendi, [facility] APPROVED REPORT EXAM: Two-dimensional and M-mode echocardiogram with Doppler and color Doppler. Other Information Quality : AverageHR: 69bpm INDICATION Hypertension/HCVD 2D DIMENSIONS Left Atrium(2D)2.6 (1.6-4.0cm)IVSd0.9 (0.7-1.1cm) Aortic Root(2D)2.7 (2.0-3.7cm)LVDd4.1 (3.9-5.9cm) LVOT Diameter1.9 (1.8-2.4cm)PWd0.9 (0.7-1.1cm) LVDs2.2 (2.5-4.0cm)FS (%) 47.6 % SV59.4 mlLVEF(%)79.5 (>50%) Aortic Valve AoV Peak Shad.152.5cm/sAoV VTI28.5cm AO Peak GR.9.3mmHgLVOT Peak Shad.106.9cm/s LVOT VTI 22.71cmAO Mean GR.5mmHg PALAK (VMAX)2.38nt3AWF (VTI)2.27cm2 Mitral Valve MV E Iupsqpel23.7cm/sMV E Peak Gr.3mmHg MV DECEL [id number] A Ddcniukf72.4cm/s MV E Mean Gr.1mmHgE/A Ratio0.7 Pulmonary Valve PV Peak Izdnimhp85.3cm/s Tricuspid Valve TR P. Qoiilifm246jw/sRAP BYCTIXFJ8abIm TR Peak Gr.05atKwHHKY38wvDz Pulmonary Vein S1 Uqdbiiwg14.4cm/sD2 [place]28.1cm/s LEFT VENTRICLE The left ventricle is normal size. There is normal left ventricular wall thickness. The left ventricu lar systolic function is normal. The Ejection Fraction is 55-60%. There is normal LV segmental wall m otion. Transmitral Doppler flow pattern is Grade I-abnormal relaxation pattern. No left ventricle thr ombus noted on this study. There is no ventricular septal defect visualized. There is no left ventric ular aneurysm. There is no mass noted in the left ventricle. RIGHT VENTRICLE The right ventricle is normal size. There is normal right ventricular wall thickness. The right ventr icular systolic function is normal. ATRIA The left atrium size is normal. The right atrium size is normal. The interatrial septum is intact wit h no evidence for an atrial septal defect or patent foramen ovale as noted on 2-D or Doppler imaging. AORTIC VALVE The aortic valve is normal in structure and function. No aortic regurgitation is present. There is no aortic valvular stenosis. Calculated aortic valve area is 2.1 cm2 with maximum pressure gradient of 10 mmHg and mean pressure gradient of 5 mmHg. MITRAL VALVE The mitral valve is normal in structure and function. There is no evidence of mitral valve prolapse. There is no mitral valve stenosis. There is no mitral valve regurgitation noted. TRICUSPID VALVE The tricuspid valve is normal in structure and function. There is trace tricuspid valve regurgitation with an estimated PAP of 36 mmHg. There is no tricuspid valve stenosis. PULMONIC VALVE The pulmonary valve is normal in structure and function. There is no pulmonic valvular regurgitation. GREAT VESSELS The aortic root is normal in size. The ascending aorta is normal in size. The IVC is normal in size a nd collapses >50% with inspiration. PERICARDIAL EFFUSION There is no evidence of significant pericardial effusion. Critical Notification Critical Value: No <Conclusion> The left ventricular systolic function is normal. The Ejection Fraction is 55-60%. There is normal LV segmental wall motion. Transmitral Doppler flow pattern is Grade I-abnormal relaxation pattern. Trace tricuspid valve regurgitation with an estimated PAP of 36 mmHg. There is no evidence of significant pericardial effusion. Signed by : Brad Dupree, Electronically Approved : 10/16/2021 14:12:10
== END ==
LOC: ECHO 10:48
PROVIDERS: ATTEND Internal Medicine Cardiovascular Disease
DX: I10 Essential (primary) hypertension (principal)
CPT/HCPCS: 93306

== ENCOUNTER 2021-10-26 08:29 | Emergency (ER) | payer MEDICARE, BC ==
[~2021-10-26] VITALS: Ht 154.9 cm; Wt 58.0 kg
[2021-10-26 08:40] VITALS: BP 160/70
[2021-10-26] MEDS ORDERED: DEXAMETHASONE 4 MG TABLET PO ONE (08:45)
--- NOTE | 2021-10-26 09:38 | RAD ---
XR EXAM OF ANKLE_RIGHT 3VIEWS History: Reason: pain/swelling / Spl. Instructions: / History: Technique: 3 views right ankle Comparison: None. Findings: No dislocation. No acute fracture. Ankle soft tissue swelling. Ankle joint effusion. Mild ankle degen erative changes. Impression: 1. No acute osseous abnormality. 2. Ankle soft tissue swelling with ankle joint effusion. Electronically signed by: Evan Fountain DO (10/26/2021 9:36 AM) [id number]
--- NOTE | 2021-10-26 09:42 | PHYS DOC ---
Past History Past Medical History: High Cholesterol, Hypertension, Hypothyroid, Kidney Stones Additional Past Medical Histor: ONLY HAS 1 KIDNEY Past Surgical History: Knee Replacement, Other Additional Past Surgical Histo: Left nephrectomy, BLADDER INFECTION Smoking: Cigarettes Alcohol Use: None Drug Use: None General Adult EDM: Chief Complaint: ANKLE PROBLEM HPI: HPI: Ms. Gonzales is a 81 yo female with PMH of gout, hypercholesteremia, HTN who presents to the ED for right ankle pain and swelling. Patient states the pain and swelling started Friday and has progressively worsened along with the ankle motion. Currently she characterizes the tenderness as nonradiating sharp in nature and rates it a 10/10. She denies any recent trauma to the right ankle region. To alleviate the pain, she has tried Tylenol and hydrocortisone with minor improvement while stepping on the foot worsens the pain. The pain is affecting her daily life. Patient denies any fever, chills, shortness of breath or groin pain. Review of Systems: Review of Systems: Constitutional: Denies fever or chills Eyes: Denies redness or eye pain HENT: Denies nasal congestion or sore throat Respiratory: Denies cough or shortness of breath Cardiovascular: Denies chest pain or palpitations GI: Denies abdominal pain, nausea, or vomiting : Denies dysuria or hematuria Musculoskeletal: Denies back pain, endorses right ankle pain and swelling Integument: Denies rash or skin lesions Neurologic: Denies headache, focal weakness or sensory changes Complete systems were reviewed and found to be within normal limits, except as documented in this note. Current Medications: Current Meds: Current Medications Medications (Trade) Dose Ordered Sig/Yaw Start Time Stop Time Status Last Admin Dose Admin Dexamethasone (Decadron) 10 mg 1X ONCE 10/26/21 08:45 10/26/21 08:46 DC 10/26/21 09:08 10 MG Allergies: Allergies: Allergies Coded Allergies Type Severity Reaction Last Updated Verified amlodipine Allergy Intermediate Swelling 12/28/18 Yes gemfibrozil Allergy Unknown 10/26/21 Yes hydrochlorothiazide Allergy Unknown 10/26/21 Yes niacin Allergy Unknown 10/26/21 Yes olmesartan Allergy Unknown 10/26/21 Yes rosuvastatin Allergy Unknown 10/26/21 Yes Physical Exam: PE: Constitutional: Well developed, well nourished, no acute distress, non-toxic appearance HENT: Normocephalic, atraumatic Eyes: PERRL, EOMI, conjunctiva normal, no discharge Neck: Normal range of motion, no tenderness, supple Lungs & Thorax: No respiratory distress, equal chest rise and fall Skin: Warm, dry, no erythema, no rash Back: No tenderness, no CVA tenderness Extremities: R lateral and medial malleolus erythema and tenderness upon light palpation, pedal pulses 2+/4 b/l, sensations present b/l Neurologic: Alert and oriented X 3, normal motor function, normal sensory function, no focal deficits noted Psychologic: Affect normal, judgment normal Current Patient Data: Vital Signs: Vital Signs Date Time Temp Pulse Resp B/P (MAP) Pulse Ox O2 Delivery O2 Flow Rate FiO2 10/26/21 08:40 98.9 84 18 160/70 (100) 97 Room Air EKG: EKG: [] Radiology/Procedures: Radiology/Procedures: PROCEDURE: ANKLE RIGHT 3V XR EXAM OF ANKLE_RIGHT 3VIEWS History: Reason: pain/swelling / Spl. Instructions: / History: Technique: 3 views right ankle Comparison: None. Findings: No dislocation. No acute fracture. Ankle soft tissue swelling. Ankle joint e ffusion. Mild ankle degenerative changes. Impression: 1. No acute osseous abnormality. 2. Ankle soft tissue swelling with ankle joint effusion. Electronically signed by: Evan Fountain DO (10/26/2021 9:36 AM) [id number] Heart Score: C/O Chest Pain: N/A Course & Med Decision Making: Course & Med Decision Making Pertinent Imaging studies reviewed. (See chart for details) Patient presents with right ankle pain and swelling. No known trauma. XR without acute fracture/dislocation. Concern for possible gout given history. Patient with upcoming rheumatology appointment. Will defer uric acid and other testing to rheumatology. Empiric steroid provided. PONCHO bandage applied for comfort. Patient stable for discharge with outpatient follow-up with PCP/Rheumatology. Discussed findings and plan with patient, who acknowledges understanding and agreement. Katie Disclaimer: Katie Disclaimer: Ms. Gonzales is a 81 yo female with PMH of gout, hypercholesteremia, HTN who presents to the ED for right ankle pain and swelling. Upon admission and [facility] physical exam, a R lower extremity X-ray was ordered showing no signs of fractures. Taking into consideration her PMH and other clinical findings patient was prescribed a dose of dexamethasone to reduce her inflammation. Patient stable for discharge with outpatient follow-up with PCP and resident care provider. Discussed findings and plan with patient, who acknowledges understanding and agreement. She will continue taking a low dose celebrex for pain managment. This electronic medical record was generated, in whole or in part, using a voice recognition dictation system. Splinting Splinting : Location: Right ankle Pre-Made Type: PONCHO bandage Pre-Proc Neuro Vasc Exam: normal Post-Proc Neuro Vasc Exam: normal, unchanged from pre-exam Departure Departure: Impression: Primary Impression: Right ankle swelling Disposition: HOME / SELF CARE / HOMELESS Condition: STABLE Referrals: MARKUS HERNANDES (PCP) Patient Instructions: Ankle Pain, Gout, Nnoa-du-Nwza, Knee Wraps (Elastic Bandage) and RICE Additional Instructions: Please follow closely with your resident care provider as previously scheduled. Scripts Prednisone (PREDNISONE) 20 Mg Tablet 2 TAB PO DAILY for Inflammatory disorder, #8 TAB Start this prescription tomorrow, 10/27/21 Prov: MAKENNA KELLY DO 10/26/21 AMKENNA KELLY DO Oct 26, 2021 09:42
[2021-10-26] MEDS ORDERED: PRED20TA PO (09:46)
== END 2021-10-26 10:05 | disposition home or self-care (01) ==
LOC: ER 08:29
DX: M25.571 Pain in right ankle and joints of right foot (principal); R22.41 Localized swelling, mass and lump, right lower limb; M10.9 Gout, unspecified; E78.00 Pure hypercholesterolemia, unspecified; I10 Essential (primary) hypertension; E03.9 Hypothyroidism, unspecified; Z87.442 Personal history of urinary calculi; F17.210 Nicotine dependence, cigarettes, uncomplicated; Z88.1 Allergy status to other antibiotic agents; Z88.8 Allergy status to other drugs, medicaments and biological substances
CPT/HCPCS: 73610; 99283; J8540

== ENCOUNTER → 2022-01-15 | Outpatient (CLI) | payer MEDICARE, BC ==
[~2022-01-15] MED LIST: PRED20TA PO
--- NOTE | 2022-01-15 12:18 | RAD ---
INDICATION: 81 years of age asymptomatic female patient presents for screening mammography. Personal history of breast cancer. Family history of breast cancer in sister age 60. TECHNIQUE: Full field craniocaudal and mediolateral oblique images of both breasts were obtained usi ng digital technique with tomosynthesis and also analyzed with computer-aided detection software. COMPARISON: Prior mammographic imaging dating back to priors dating back to 04/21/2017 BREAST COMPOSITION: Category B: There are scattered fibroglandular densities. FINDINGS: No suspicious masses, microcalcifications or architectural distortion is present to suggest malignanc y in either breast. The visualized axillae are unremarkable. IMPRESSION: No mammographic evidence of malignancy. RECOMMENDATION: Annual screening mammography is recommended, unless clinically indicated sooner based on symptoms or change in physical exam. BIRADS 1: NEGATIVE This study was interpreted with the benefit of Computerized Aided Detection (CAD). Patient information is entered into the reminder system with a target due date for the next screening mammogram. Mammography is the most sensitive method for finding small breast cancers, but it does not detect the m all and is not a substitute for careful clinical examination. A negative mammogram does not negate a clinically suspicious finding and should not result in delay in biopsying a clinically suspicious a bnormality. "Our facility is accredited by the [employer] Mammography Program." Electronically signed by: Bryson Cazares DO (01/15/2022 12:16 PM) [id number]
== END ==
LOC: MAMMO 08:58
PROVIDERS: ATTEND Physician Assistant
DX: Z12.31 Encounter for screening mammogram for malignant neoplasm of breast (principal); Z80.3 Family history of malignant neoplasm of breast
CPT/HCPCS: 77063; 77067